=== PATIENT | male | born 1985 | race Caucasian/White ===

== ENCOUNTER 2020-04-14 13:01 | Emergency (ER) | payer OTHER, SELFPAY ==
--- NOTE | ~2020-04-14 | XR_ITS ---
EXAMINATION: XR shoulder LT min 2V DATE: 04/14/2020 13:47 INDICATION: Left shoulder pain post weightlifting injury TECHNIQUE: AP internally and externally rotated, AP oblique externally rotated and transscapular Y vi ews of the left shoulder were obtained. COMPARISON: None FINDINGS: Normal alignment. No fracture. Glenohumeral joint is normal. Acromioclavicular joint is normal. Soft tissues are unremarkable. Visualized portions of the lungs are clear. IMPRESSION: Negative left shoulder radiographs. Reviewed, dictated and finalized at location B.
[2020-04-14 13:23] VITALS: BP 151/101; PULSE 87; RESP 20; TEMP 36.6; O2SAT 98
--- NOTE | 2020-04-14 14:49 | WC.ED.TRAUMA ---
HPI - Trauma General Chief Complaint: Extremity Injury, Upper <Frank Fink PA-C - Last Filed: 04/14/20 14:52> Stated Complaint: left shoulder injury <Frank Fink PA-C - Last Filed: 04/14/20 14:52> Time Seen by Provider: 04/14/20 13:05 <Frank Fink PA-C - Last Filed: 04/14/20 14:52> Source: patient <Frank Fink PA-C - Last Filed: 04/14/20 14:52> Mode of arrival: ambulatory <Frank Fink PA-C - Last Filed: 04/14/20 14:52> Limitations: no limitations <Frank Fink PA-C - Last Filed: 04/14/20 14:52> History of Present Illness HPI narrative: Patient is a 35-year-old male who presents with left-sided neck and shoulder pain that began a week ago patient was lifting weights was doing a sitting row when he began to have the pain which persisted has been taking intermittent [id number] medication over the week with no improvement patient on arrival to emergency department is resting comfortably in the room in no distress pain is worse with any manipulation of the left neck or shoulder patient denies similar occurrence in the past patient on arrival to emergency department resting comfortably <Frank Fink PA-C - Last Filed: 04/14/20 14:52> Related Data Home Medications: Home Medications Medication Instructions Recorded Confirmed multivit with min-folic acid mcg PO DAILY 04/14/20 [Adult Multivitamin Gummies] <Frank Fink PA-C - Last Filed: 04/14/20 14:52> Allergies/Adverse Reactions: Allergies Allergy/AdvReac Type Severity Reaction Status Date / Time No Known Allergies Allergy Verified 04/14/20 14:10 <Frank Fink PA-C - Last Filed: 04/14/20 14:52> Review of Systems Review of Systems: All systems reviewed & are unremarkable except as noted in HPI and below <Frank Fink PA-C - Last Filed: 04/14/20 14:52> PMFSH Past Medical History Medical History: Medical History (Updated 04/14/20 @ 14:52 by Frank Fink PA-C) Obesity <Frank Fink PA-C - Last Filed: 04/14/20 14:52> Exam Narrative: Exam Narrative: GENERAL: Well-appearing, well-nourished, and in no acute distress. HEAD: Normocephalic, atraumatic. EYES: PERRLA and EOMI. ENT: Nares clear, no rhinorrhea or epistaxis. Mucous membranes moist. Oropharynx without tonsillar hypertrophy exudate or other lesions. NECK: Supple. No adenopathy or masses. CHEST: Clear to auscultation. No respiratory distress. No wheezes rales or rhonchi HEART: Regular rate and rhythm. No murmur heard. Normal peripheral pulses. EXTREMITIES: Normal range of motion. No edema. Left-sided paraspinal cervical musculature tenderness no deformity noted SKIN: Warm, dry, no rash. NEURO: No focal deficits. Alert and oriented x3. Cranial nerves II through XII grossly. Neurovascularly intact. Capillary refill less than 2 seconds PSYCH: Normal mood and affect. <EMILY Vu Last Filed: 04/14/20 14:52> Course Course Emergency Course: Patient in the room in no distress aware of case findings treatment plan and diagnosis agreeing to follow-up as directed or to return if symptoms worsen or concerns <EMILY Vu Last Filed: 04/14/20 14:52> Vital Signs Vital signs: Vital Signs Temperature 36.6 C 04/14/20 13:23 Pulse Rate 87 04/14/20 13:23 Respiratory Rate 20 04/14/20 13:23 Blood Pressure 151/101 H 04/14/20 13:23 Pulse Oximetry 98 04/14/20 13:23 Temperature 36.6 C 04/14/20 15:20 Pulse Rate 92 04/14/20 15:20 Respiratory Rate 18 04/14/20 15:20 Blood Pressure 155/117 H 04/14/20 15:20 Pulse Oximetry 99 04/14/20 15:20 <EMILY Vu Last Filed: 04/14/20 14:52> Vital Signs Temperature 36.6 C 04/14/20 13:23 Pulse Rate 87 04/14/20 13:23 Respiratory Rate 20 04/14/20 13:23 Blood Pressure 151/101 H 04/14/20 13:23 Pulse Oximetry 98 04/14/20 13:23 Temperature 36.6
[2020-04-14] MEDS: KETOROLAC (*BKC) 60 MG/2 ML VIAL IM (15:09)
[2020-04-14 15:20] VITALS: BP 155/117; PULSE 92; RESP 18; TEMP 36.6; O2SAT 99
== END 2020-04-14 15:21 | disposition home or self-care (01) ==
PROVIDERS: Emergency Provider Emergency Medicine
DX: G24.3 Spasmodic torticollis (principal); E66.9 Obesity, unspecified; Z68.41 Body mass index [BMI] 40.0-44.9, adult
CPT/HCPCS: 73030; 96372; 99283; J1885